=== PATIENT | male | born 1965 | race Caucasian/White ===

== ENCOUNTER 2018-10-06 23:41 | Emergency (ER) | payer MEDICAID ==
[~2018-10-06] VITALS: Ht 170.2 cm; Wt 78.9 kg
[2018-10-06 23:42] VITALS: BP 117/76
--- NOTE | 2018-10-06 23:42 | NUR ---
TO BED # 07 AMBULATORY
--- NOTE | 2018-10-07 00:06 | NUR ---
53 y/o M presented to ED with c/o diarrhea x 4 days. Bowel sounds present x4 quadrants, normoactive. denies abdominal pain and n/v. recent travel outside the [place]. ERMD notified. Will continue to monitor.
[2018-10-07] MEDS ORDERED: NACL 0.9% 1,000 ML IV ONE (00:48)
[2018-10-07] MEDS ORDERED: DICYCLOMINE 20 MG/2 ML VIAL IM ONE (00:50)
[2018-10-07 01:02] LABS: BASOPHILS % (AUTO) 0.5 % (0.0-2.0); HEMATOCRIT 45.3 % (36-52); HEMOGLOBIN 15.2 g/dL (12.0-18.0); LYMPHOCYTES # (AUTO) 0.9 K/uL (2.0-11.5); LYMPHOCYTES % (AUTO) 22.1 % (20.5-51.1); MEAN CORPUSCULAR HEMOGLOBIN 30 pg (27-31); MEAN CORPUSCULAR HGB CONC 34 g/dL (33-37); MEAN CORPUSCULAR VOLUME 90.3 fL (80-94); MONOCYTES # (AUTO) 0.5 K/uL (0.8-1.0); MONOCYTES % (AUTO) 10.7 % (1.7-9.3); NEUTROPHILS # (AUTO) 2.8 K/uL (1.8-7.7); NEUTROPHILS % (AUTO) 65.7 % (42.2-75.2); PLATELET COUNT (AUTO) 226 K/uL (140-450); RED BLOOD CELL COUNT(AUTO) 5.01 MIL/uL (4.20-6.10); RED CELL DISTRIBUTION WIDTH 14.3 % (11.6-13.7); WHITE BLOOD COUNT (AUTO) 4.3 K/uL (4.8-10.8)
[2018-10-07 01:15] LABS: ANION GAP 12.2 (8-16); CARBON DIOXIDE 27.5 mmol/L (21-32); CREATININE 0.9 mg/dL (0.7-1.3); POTASSIUM 3.7 mmol/L (3.5-5.1)
[2018-10-07 01:21] LABS: ALBUMIN 3.9 g/dL (3.4-5.0); TOTAL BILIRUBIN 0.3 mg/dL (0.0-1.0)
[2018-10-07 01:25] LABS: APPEARANCE,URINE CLEAR (CLEAR); BILIRUBIN,URINE NEGATIVE (NEGATIVE); BLOOD, URINE TRACE-I (NEGATIVE); COLOR,URINE YELLOW (YELLOW); LEUKOCYTE ESTERASE ,URINE NEGATIVE (NEGATIVE); NITRITE, URINE NEGATIVE (NEGATIVE); UGLUCOSE NEGATIVE (NEGATIVE)
--- NOTE | 2018-10-07 01:30 | NUR ---
Pt seen with eyes closed. Visible chest rise and fall noted. Family at bedside. Will continue to monitor.
[2018-10-07 01:41] LABS: RBC,URINE 0-5 /HPF (0-5); WBC,URINE 0-5 /HPF (0-5)
[2018-10-07 01:42] VITALS: BP 120/77
--- NOTE | 2018-10-07 02:25 | NUR ---
Patient discharged with v/s stable. Written and verbal after care instructions given and explained. Patient alert, oriented and verbalized understanding of instructions. Ambulatory with steady gait. All questions addressed prior to discharge. ID band removed. Patient advised to follow up with PMD. Rx of Bentyl and Bactrim given. Patient educated on indication of medication including possible reaction and side effects. Opportunity to ask questions provided and answered.
== END 2018-10-07 02:25 | disposition home or self-care (01) ==
LOC: MED 23:41
DX: R19.7 Diarrhea, unspecified (principal); R53.1 Weakness; R68.83 Chills (without fever)
CPT/HCPCS: 36415; 80053; 81001; 83690; 85025; 96360; 96372; 99283; J0500; J7030; 96361